=== PATIENT | female | born 2000 ===

== ENCOUNTER 2020-03-18 21:02 | Emergency (ER) | payer SELFPAY ==
[~2020-03-18] VITALS: Ht 165.1 cm; Wt 68.0 kg
[~2020-03-18 21:02] MED LIST: CEPH250T PO
[2020-03-18] MEDS ORDERED: APAP 325 MG/10.15 ML LIQ (TYLENOL) UDC ONE (21:35)
[2020-03-18] MEDS ORDERED: NS IV 1000 ML 1,000 ML ONE (21:35)
[2020-03-18] MEDS ORDERED: IBUPROFEN SUSP 100MG/5ML (MOTRIN) UDC ONE (21:36)
--- NOTE | 2020-03-18 21:40 | NUR ---
2119--Pt waiting in car, this RN called pt 2125--Pt ambulated to ED-10. 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 She stated she laid on the floor and her SO gave her 3 blankets. Pt stated she voided 3 times within 15 minutes next. Pt then reports that she became achey all over, especially in the back, was shaking and had a dry mouth and an ache in her chest. At this time, pt reports dry mouth, chest ache and headache being the remaining complaints.
[2020-03-18] MEDS ORDERED: IBUPROFEN SUSP 100MG/5ML (MOTRIN) UDC PO ONE (21:45)
[2020-03-18] MEDS ORDERED: NS IV 1000 ML 1,000 ML IV SCH (21:45)
[2020-03-18] MEDS ORDERED: APAP 325 MG/10.15 ML LIQ (TYLENOL) UDC PO ONE (21:45)
--- NOTE | 2020-03-18 21:50 | ED General ---
General Chief Complaint: General Problems/Pain Stated Complaint: HEADACHE;CHEST PAIN;ABD PAIN;CHILLS Source of Information: Patient Exam Limitations: No Limitations History of Present Illness Date Seen by Provider: Mar 18, 2020 Time Seen by Provider: 21:48 Initial Comments To ER with sudden onset of headache chest pain suprapubic pain dysuria and chills. This began suddenly 2 hours ago. She Urinated 3 times within 15 minutes. She is employed at [employer]. Timing/Duration: 1-2 Days Severity: Moderate Associated Systoms: No Cough; Fever/Chills, Headaches; No Nausea/Vomiting Allergies and Home Medications Allergies Coded Allergies: No Known Drug Allergies (Unverified , 02/28/14) Home Medications Cefuroxime Axetil 250 Mg Tablet, 250 MG PO BID Prescribed by: ABRIL BALL on 03/18/20 2226 Cephalexin Monohydrate 250 Mg Tablet, 1 EACH PO TID Prescribed by: ABRIL BALL on 02/28/14 1631 Patient Home Medication List Home Medication List Reviewed: Yes Review of Systems Review of Systems Constitutional: see HPI, chills, fever EENTM: see HPI Respiratory: no symptoms reported; No cough, No short of breath Cardiovascular: no symptoms reported Genitourinary: see HPI, frequency Musculoskeletal: no symptoms reported Skin: no symptoms reported Psychiatric/Neurological: No Symptoms Reported Hematologic/Lymphatic: No Symptoms Reported Immunological/Allergic: no symptoms reported Past Tqvmopc-Scfcvg-Bodcqp Hx Seasonal Allergies Seasonal Allergies: No Physical Exam Vital Signs Vital Signs - First Documented 03/18/20 21:49 Pulse 140 Resp 18 B/P (MAP) 123/75 Pulse Ox 95 O2 Delivery Room Air Capillary Refill : Height, Weight, BMI Height: 4'9" Weight: 128lbs. oz. 58.910829mx; BMI Method:Actual General Appearance: No Apparent Distress, WD/WN Eyes: Bilateral Eye Normal Inspection, Bilateral Eye PERRL, Bilateral Eye EOMI Neck: Full Range of Motion, Normal Inspection Respiratory: No Accessory Muscle Use, No Respiratory Distress Cardiovascular: Normal Peripheral Pulses, Tachycardia (rate 135-150 sinus) Gastrointestinal: Non Tender, Soft, Tenderness (minimal suprapubic) Extremity: Normal Capillary Refill, Normal Inspection Neurologic/Psychiatric: Alert, Oriented x3 Skin: Normal Color, Warm/Dry Progress/Results/Core Measures Suspected Sepsis SIRS Temperature: Pulse: Respiratory Rate: Laboratory Tests 03/18/20 21:41: White Blood Count 10.1 Blood Pressure / Mean: Laboratory Tests 03/18/20 21:41: Creatinine 0.86, Platelet Count 238 Results/Orders Lab Results Laboratory Tests Test 03/18/20 21:41 Range/Units White Blood Count 10.1 4.3-11.0 10^3/uL Red Blood Count 4.57 3.80-5.11 10^6/uL Hemoglobin 13.7 11.5-16.0 g/dL Hematocrit 40 35-52 % Mean Corpuscular Volume 87 80-99 fL Mean Corpuscular Hemoglobin 30 25-34 pg Mean Corpuscular Hemoglobin Concent 34 32-36 g/dL Red Cell Distribution Width 11.9 10.0-14.5 % Platelet Count 238 130-400 10^3/uL Mean Platelet Volume 10.6 9.0-12.2 fL Immature Granulocyte % (Auto) 0 % Neutrophils (%) (Auto) 83 H 42-75 % Lymphocytes (%) (Auto) 14 12-44 % Monocytes (%) (Auto) 2 0-12 % Eosinophils (%) (Auto) 0 0-10 % Basophils (%) (Auto) 0 0-10 % Neutrophils # (Auto) 8.4 H 1.8-7.8 10^3/uL Lymphocytes # (Auto) 1.4 1.0-4.0 10^3/uL Monocytes # (Auto) 0.2 0.0-1.0 10^3/uL Eosinophils # (Auto) 0.0 0.0-0.3 10^3/uL Basophils # (Auto) 0.0 0.0-0.1 10^3/uL Immature Granulocyte # (Auto) 0.0 0.0-0.1 10^3/uL Urine Color YELLOW Urine Clarity SL CLOUDY Urine pH 8.0 5-9 Urine Specific [place] 1.015 L 1.016-1.022 Urine Protein NEGATIVE NEGATIVE Urine Glucose (UA) NEGATIVE NEGATIVE Urine Ketones NEGATIVE NEGATIVE Urine Nitrite NEGATIVE NEGATIVE Urine Bilirubin NEGATIVE NEGATIVE Urine Urobilinogen 0.2 < = 1.0 MG/DL Urine Leukocyte Esterase 3+ H NEGATIVE Urine RBC (Auto) TRACE-L NEGATIVE Urine RBC 0-2 /HPF Urine WBC 10-25 H /HPF Urine Crystals NONE /LPF Urine Bacteria FEW H /HPF Urine Casts NONE /LPF Urine Mucus NEGATIVE /LPF Urine Culture Indicated YES Urine Test NEGATIVE NEGATIVE Sodium Level 136 135-145 MMOL/L Potassium Level 3.7 3.6-5.0 MMOL/L Chloride Level 102 98-107 MMOL/L Carbon Dioxide Level 19 L 21-32 MMOL/L Anion Gap 15 H 5-14 MMOL/L Blood Urea Nitrogen 10 7-18 MG/DL Creatinine 0.86 0.60-1.30 MG/DL Estimat Glomerular Filtration Rate > 60 BUN/Creatinine Ratio 12 Glucose Level 110 H 70-105 MG/DL Calcium Level 9.5 8.5-10.1 MG/DL C-Reactive Protein High Sensitivity 2.01 H 0.00-0.50 MG/DL Coronavirus 2019 ([facility]) Negative Negative Micro Results Microbiology 03/18/20 Influenza Types A,B Antigen ([facility]) - Final, Complete My Orders Orders - ABRIL BALL APRN Coronavirus Sars-Cov-2 So 2018 (03/18/20 21:06) Influenza A And B Antigens (03/18/20 21:06) Ua Culture If Indicated (03/18/20 21:21) Hcg,Qualitative Urine (03/18/20 21:21) Cbc With Automated Diff (03/18/20 21:21) Basic Metabolic Panel (03/18/20 21:21) Ed Iv/Invasive Line Start (03/18/20 21:21) Ns Iv 1000 Ml (Sodium Chloride 0.9%) (03/18/20 21:35) Acetaminophen Oral Solution (Tylenol Ora (03/18/20 21:35) Ibuprofen Suspension (Motrin Suspension) (03/18/20 21:36) Hs C Reactive Protein (03/18/20 21:44) Ns Iv 1000 Ml (Sodium Chloride 0.9%) (03/18/20 21:45) Acetaminophen Oral Solution (Tylenol Ora (03/18/20 21:45) Ibuprofen Suspension (Motrin Suspension) (03/18/20 21:45) Covid 19 Inhouse Test (03/18/20 21:45) Chest 1 View, Ap/Pa Only (03/18/20 21:45) Procalcitonin (Pct) (03/18/20 21:45) Fibrin Degradation Products (03/18/20 22:08) Urine Culture (03/18/20 21:41) Ceftriaxone For Iv Use (Rocephin For I (03/18/20 22:30) Medications Given in ED Current Medications Medications Dose Ordered Sig/Jin Route Start Time Stop Time Status Last Admin Dose Admin Acetaminophen 650 mg ONCE ONCE PO 03/18/20 21:45 03/18/20 21:46 DC 03/18/20 21:35 650 MG Ibuprofen 800 mg ONCE ONCE PO 03/18/20 21:45 03/18/20 21:46 DC 03/18/20 21:35 800 MG Vital Signs/I&O 03/18/20 03/18/20 03/18/20 21:35 21:35 21:49 Temp 38.7 38.7 38.7 Pulse 140 Resp 18 B/P (MAP) 123/75 Pulse Ox 95 O2 Delivery Room Air Capillary Refill : Departure Impression Primary Impression: Urinary tract infection Qualified Codes: N30.00 - Acute cystitis without hematuria Disposition: HOME, SELF-CARE Condition: Stable Departure-Patient Inst. Decision time for Depature: 22:24 Referrals: [facility] (PCP/Family) Primary Care Physician Patient Instructions: Urinary Tract Infection, Adult (DC) Add. Discharge Instructions: Tylenol and motrin for pain and fever control. Take antibiotics a directed. Follow up with your doctor this week for recheck. Return to Er for any worsening pain or other concerns. . Your rapid covid test was negative. All discharge instructions reviewed with patient and/or family. Voiced understanding. Scripts Cefuroxime Axetil (Cefuroxime) 250 Mg Tablet 250 MG PO BID, #10 TAB Prov: ABRIL BALL APRN 03/18/20 Work/School Note: Work Release Form Date Seen in the Emergency Department: Mar 18, 2020 Return to Work: Mar 20, 2020 ABRIL BALL APRN Mar 18, 2020 21:50
[2020-03-18 21:57] LABS: BASOPHILS % (AUTO) 0 % (0-10); EOSINOPHILS % (AUTO) 0 % (0-10); HEMATOCRIT 40 % (35-52); HEMOGLOBIN 13.7 g/dL (11.5-16.0); LYMPHOCYTES # (AUTO) 1.4 10^3/uL (1.0-4.0); LYMPHOCYTES % (AUTO) 14 % (12-44); MEAN CORPUSCULAR HEMOGLOBIN 30 pg (25-34); MEAN CORPUSCULAR HGB CONC 34 g/dL (32-36); MEAN CORPUSCULAR VOLUME 87 fL (80-99); MEAN PLATELET VOLUME 10.6 fL (9.0-12.2); MONOCYTES # (AUTO) 0.2 10^3/uL (0.0-1.0); MONOCYTES % (AUTO) 2 % (0-12); NEUTROPHILS # (AUTO) 8.4 10^3/uL (1.8-7.8); NEUTROPHILS % (AUTO) 83 % (42-75); PLATELET COUNT 238 10^3/uL (130-400); WHITE BLOOD COUNT 10.1 10^3/uL (4.3-11.0)
[2020-03-18 22:02] LABS: BILIRUBIN,URINE NEGATIVE (NEGATIVE); CLARITY,URINE SL CLOUDY; COLOR,URINE YELLOW; GLUCOSE, URINE (UA) NEGATIVE (NEGATIVE); KETONES,URINE NEGATIVE (NEGATIVE); LEUKOCYTE ESTERASE ,URINE 3+ (NEGATIVE); NITRITE,URINE NEGATIVE (NEGATIVE); PROTEIN,URINE NEGATIVE (NEGATIVE)
[2020-03-18 22:22] LABS: RBC,URINE 0-2 /HPF
[2020-03-18 22:23] LABS: BACTERIA,URINE FEW /HPF
[2020-03-18] MEDS ORDERED: CEFU250T80 PO (22:26)
[2020-03-18 22:28] LABS: BUN/CREATININE RATIO 12; CALCIUM 9.5 MG/DL (8.5-10.1); CARBON DIOXIDE 19 MMOL/L (21-32); CHLORIDE 102 MMOL/L (98-107); CREATININE SERUM 0.86 MG/DL (0.60-1.30); GFR ESTIMATED > 60; GLUCOSE 110 MG/DL (70-105); POTASSIUM 3.7 MMOL/L (3.6-5.0); SODIUM 136 MMOL/L (135-145)
[2020-03-18] MEDS ORDERED: cefTRIAXone FOR IV USE 1,000 MG in WATER (STERILE) FOR INJECTION 10 ML IV ONE (22:30)
--- NOTE | 2020-03-19 05:45 | Diagnostic Imaging Report ---
EXAMINATION: Portable erect AP chest at 1029 PM INDICATION: Cough and fever There are no prior studies available for comparison. The heart size is within normal limits. The lungs are clear. There is no evidence for pneumonia or for a pleural effusion. There is no sign of a pneumothorax. The mediastinum is not widened. The osseous structures are intact. IMPRESSION: There is no evidence for active disease. Dictated by: Dictated on workstation # [id number]
== END 2020-03-18 22:54 | disposition home or self-care (01) ==
LOC: EDUNIT# 21:02 → ER 21:04
DX: N30.00 Acute cystitis without hematuria (principal); Z20.828 Contact with and (suspected) exposure to other viral communicable diseases; Z32.02 Encounter for pregnancy test, result negative
CPT/HCPCS: 71045; 80048; 81000; 84145; 84703; 85025; 85379; 86141; 87088; 87804; 99284; U0002; 36415; 87635

== ENCOUNTER 2020-08-30 16:28 | Emergency (ER) | payer OTHER ==
[~2020-08-30 16:28] MED LIST changes: +CEFU250T80 PO
== END 2020-08-30 16:43 | disposition left against medical advice (07) ==
LOC: EDUNIT# 16:28 → ER 16:31
DX: R51.9 Headache, unspecified (principal); H53.8 Other visual disturbances; R11.0 Nausea

== ENCOUNTER 2020-09-01 19:25 | Emergency (ER) | payer OTHER ==
[~2020-09-01] VITALS: Ht 149 cm; Wt 60.0 kg
[2020-09-01] MEDS ORDERED: ORPHENADRINE 60 MG/2 ML (NORFLEX) AMP (ED ONLY) IM ONE (20:00)
[2020-09-01] MEDS ORDERED: KETOROLAC 30 MG/ML VIAL IM ONE (20:00)
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
[2020-09-01] MEDS ORDERED: CYCL5TAB PO (20:51)
[2020-09-01 21:03] VITALS: BP 120/60
== END 2020-09-01 21:04 | disposition home or self-care (01) ==
LOC: EDUNIT# 19:25 → ER 19:27
DX: S09.90XA Unspecified injury of head, initial encounter (principal); R40.2410 Glasgow coma scale score 13-15, unspecified time; V89.2XXA Person injured in unspecified motor-vehicle accident, traffic, initial encounter
CPT/HCPCS: 99284